=== PATIENT | female | born 1975 | race Caucasian/White ===

== ENCOUNTER → 2020-03-18 09:40 | Outpatient (CLI) | payer OTHER, SELFPAY ==
--- NOTE | ~2020-03-18 | XR_ITS ---
XR lumbar spine 2-3V 03/18/2020 09:58 Indication: Low back pain Procedure: 3 views lumbar spine Comparison: No prior studies for comparison. Findings: Vertebral body heights are maintained. No fracture, subluxation or dislocation. There is mi ld disc narrowing at L5-S1. There are facet hypertrophic changes at L5-S1. Pedicles intact. No eviden ce for spondylolisthesis. Sacral foramen are symmetric. There is an IUD present in the pelvis. Impression: 1: Mild lumbar spondylosis. Reviewed, dictated and finalized at location A. Impression: 1: Mild lumbar spondylosis.
== END ==
PROVIDERS: PCP Physician Assistant; Visit Provider Physician Assistant
DX: M47.896 Other spondylosis, lumbar region (principal)
CPT/HCPCS: 72100

== ENCOUNTER 2020-05-24 14:00 | Outpatient (RCR) | payer OTHER, SELFPAY ==
--- NOTE | 2020-04-06 13:44 | PTOPEVAL ---
PHYSICAL THERAPY EVALUATION AND PLAN OF TREATMENT 04-06-2020 Thank you for referring Darleen Donnelly to [facility].? She is scheduled to be seen for therapy? 1-2 x/week for 5 weeks. Due to her schedule with work and children, the plan is for 1-2 x/week. Please review, sign, date and return this plan of care ORIANA. I agree with and certify that the following plan of care is medically necessary. Referring Physician Date Attending Provider: Micky Cruz MD *PT Outpatient Evaluation Document 04/06/20 12:30 MEGA (Rec: 04/06/20 13:44 MEGA [id number]) Outpatient Past Medical History Past Medical History Source of Past Medical History Patient Neurological History Hx Neurological Disorders No Significant History Cardiovascular History Hx Cardiac Disorders No Significant History Respiratory History Hx Respiratory Disorders No Significant History Gastrointestinal History Hx Gall Bladder Disease Yes: removed Genitourinary History Hx Genitourinary Disorders No Significant History Musculoskeletal History Hx Back Pain Yes: chronic:low back pain, R shoulder pain Hx Other Musculoskeletal Disorders Yes: L ankle pain/sprain, R knee pain; B plantar fascitiis Hematological History Hx Hematological Disorders No Significant History Endocrine History Hx Endocrine Disorders No Significant History HEENT History Hx HEENT Disorders No Significant History Other History Hx Other Medical Conditions Yes: high school sports-track, hurdles,gymnastics, softball Evaluation Information Problem Diagnosis chronic back pain Onset October 2019 Subjective Information increased low back pain in October Query Text:As Reported By Patient/ , twisted back- reaching for Family something in the pool, and on steroids- helped pain, but pain returned and still having pain; chronic back pain ~ 12 years-- no specific injury to back, was active, runner and pain; have never had PT for back; Diagnostic Tests X-Rays For This Problem Yes: mild disc degeneration L5 -S1 and facet hypertrophy L5- S1 Previous Treatments Previous Treatments For This Problem no previous PT Prior Level of Function Activity Level (Last 3 Months) 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
--- NOTE | 2020-05-05 13:00 | PCPTNOTE ---
pt called and canceled today's appointment due to having a cough;
--- NOTE | 2020-05-24 15:18 | PTOPEVAL ---
PHYSICAL THERAPY DISCHARGE 05-24-2020 Refer to the clinical summary below. The goals were partially achieved. Discharge PT services and she is to continue with her home exercise program. And to look into a home traction- with inversion table or home unit. Thank you for referring Darleen Donnelly to [facility].? Please review, sign, date and return this discharge ORIANA. I agree with and certify that the following plan of care is medically necessary. 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 Pain Assessment Timing of Pain Assessment Timing of Pain Assessment Assessment Pain Scale Pain Scale Used Numeric (1 - 10) Self Report Pain Assessment Bilateral Back Reported Pain Level 4 Pain Description Sharp,Stabbing Pain Frequency Chronic Other Pain Description stab L lumbar; intermittent L LE to mid lateral thigh/R LE- NOT for past wk Lowest Pain Intensity 2 Greatest Pain Intensity 6 Pain Aggravating Factors Sitting Other Pain Aggravating Factors sit one hour max; Additional Pain Comments able to sleep through nigh without pain awaken Pain Score Pain Score 4: Self Report Additional Pain Score Comments self assessment with Oswestry 38% limitation; Interventions Used Interventions Used By Clinicians Exercise,Heat,Traction Lower Extremity Range of Motion General Lower Extremity Range of Motion Gross Lower
== END 2020-05-25 13:33 | disposition home or self-care (01) ==
LOC: ANHPT 14:00
PROVIDERS: PCP Family Medicine; Visit Provider Family Medicine
DX: M54.5 Low back pain (principal)
CPT/HCPCS: 97012; 97014; 97110; 97140; 97161; G0283

== ENCOUNTER → 2020-06-02 11:33 | Outpatient (CLI) | payer OTHER, SELFPAY ==
--- NOTE | ~2020-06-02 | MM_ITS ---
EXAMINATION: MM screening [facility] BI w lana HISTORY: Screening TECHNIQUE: Craniocaudal and mediolateral oblique 3-D tomosynthesis images were obtained and synthetic 2-D images were generated. CAD analysis was submitted and interpreted. COMPARISON: Comparison to multiple prior studies sequentially, with oldest reviewed study dated 04/24. BREAST PARENCHYMAL COMPOSITION: There are scattered areas of fibroglandular density. FINDINGS: There is no evidence of suspicious mass, calcification, or architectural distortion to sugg est malignancy in either breast. There has been no suspicious interval change. IMPRESSION: 1. No mammographic evidence of malignancy. 2. Recommend routine screening mammography in one year. BI-RADS Category 1: Negative Reviewed, dictated and finalized at location A. ERCIAL CLEANER
== END ==
PROVIDERS: Visit Provider Nurse Practitioner Obstetrics & Gynecology
DX: Z12.31 Encounter for screening mammogram for malignant neoplasm of breast (principal)
CPT/HCPCS: 77063; 77067

== ENCOUNTER → 2021-07-25 16:08 | Outpatient (CLI) | payer OTHER, SELFPAY ==
--- NOTE | ~2021-07-25 | MM_ITS ---
EXAMINATION: MM screening [facility] BI w lana HISTORY: Screening mammogram TECHNIQUE: Craniocaudal and mediolateral oblique 3-D tomosynthesis images were obtained and synthetic 2-D images were generated. CAD analysis was submitted and interpreted. COMPARISON: 06/02/2020, 05/01/2019, 04/09/2018 BREAST PARENCHYMAL COMPOSITION: There are scattered areas of fibroglandular density. FINDINGS: There is no evidence of suspicious mass, calcification, or architectural distortion to sugg est malignancy in either breast. There has been no suspicious interval change. IMPRESSION: 1. No mammographic evidence of malignancy. 2. Recommend routine screening mammography in one year. BI-RADS Category 1: Negative Reviewed, dictated and finalized at location A. F MEDIA OFFICER
== END ==
PROVIDERS: Visit Provider Nurse Practitioner Obstetrics & Gynecology
DX: Z12.31 Encounter for screening mammogram for malignant neoplasm of breast (principal)
CPT/HCPCS: 77063; 77067

== ENCOUNTER → 2021-11-30 16:36 | Outpatient (CLI) | payer OTHER, SELFPAY ==
--- NOTE | ~2021-11-30 | XR_ITS ---
EXAMINATION: XR chest 2V 11/30/2021 16:56 INDICATION: Chest pain PROCEDURE: 2 view chest COMPARISON: No prior studies for comparison. FINDINGS: The lungs are clear. The cardiomediastinal silhouette is within normal limits. There are no pleural effusions. There is no pneumothorax suspected. IMPRESSION: 1: NO ACUTE CARDIOPULMONARY DISEASE. 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
== END ==
PROVIDERS: PCP Physician Assistant; Visit Provider Physician Assistant
DX: R07.9 Chest pain, unspecified (principal)
CPT/HCPCS: 71046

== ENCOUNTER 2022-03-29 10:00 | Day surgery (SDC) | payer OTHER, SELFPAY ==
[2022-03-14 10:24] VITALS: BMI 29.5
--- NOTE | 2022-03-28 11:31 | PM.HPGS ---
History of Present Illness History of Present Illness Consent: Risks, benefits, and alternatives have been discussed and questions answered. Patient agrees to proceed with procedure. Chief complaint: Neoplasm Screening Narrative: Darleen Donenlly is a 46 year old female referred for colon cancer screening. Review of Systems Review of Systems: All systems reviewed & are unremarkable except as noted in HPI and below PMFSH Past Medical History Medical History Nonerosive esophageal reflux disease Family History Family History Sibling Family history of elevated blood lipids Family history of diabetes mellitus in first degree relative Family history of seizure disorder Mother Family history of diabetes mellitus in first degree relative Family history of coronary artery disease Father Family history of malignant melanoma Hypertension Other Asthma Family history of allergic disorder Family history of cardiovascular disease Social History Social History Smoking packs per day: 0.5 Smoking cigarettes per day: 10.0 Years smoked: 6 Smoking pack-years: 3.00 Smoking status: Former smoker Tobacco type: cigarettes Second hand tobacco smoke exposure: No Smoking end date: 06/24/97 Alcohol intake: current Drinks per week: 1 Alcohol use details: OCCASIONAL Substance use: never Substance use type: does not use Living arrangements: with family Gender identity (if verbalized by the patient): Female Spiritual care concerns: No Meds Home Medications and Allergies Home Medications Medication Instructions Recorded Confirmed Type Bacillus coagulans 400 million See Rx Instructions PO .COMPLEX #1 12/08/21 03/14/22 Rx cell chewable tablet tablet ibuprofen 200 mg tablet 200 mg PO Q6H PRN fever #30 tabs 12/08/21 03/29/22 Rx levonorgestrel 20 mcg/24 hours (8 1 device intrauterine ONCE #1 ea 12/08/21 03/14/22 Rx yrs) 52 mg intrauterine device (Mirena) pediatric multivitamin no.17 1 tablet PO DAILY #30 tabs 12/08/21 03/14/22 Rx (Children's Chew Multivitamin tablet) Allergies Allergy/AdvReac Type Severity Reaction Status Date / Time Sulfa (Sulfonamide Allergy Unknown Rash Verified 03/29/22 10:34 Antibiotics) sulfanilamide Allergy Unknown Rash Verified 03/29/22 10:34 Shrimp Allergy Mild Hives Uncoded 03/29/22 10:34 Exam Const: General: alert Orientation/consciousness: patient oriented x3 Resp: Auscultation: clear to auscultation bilaterally Cardio: Rhythm: regular rhythm GI: GI Palp: Yes Soft to palpation and No Tenderness to palpation present (GI) Neuro: General: patient oriented x3 Assessment and Plan Assessment and plan (1) Colon cancer screening: Code(s): Z12.11 - Encounter for screening for malignant neoplasm of colon Status: Acute Assessment and Plan: Colonoscopy with possible biopsy or polypectomy or cautery or injection of substances.
[2022-03-29 10:38] VITALS: BMI 30.1
[2022-03-29 10:40] VITALS: BP 127/94; PULSE 93; RESP 16; TEMP 37.1; O2SAT 100
--- NOTE | 2022-03-29 10:56 | WPDANESEPPF ---
Anes - Initial Pre Proc Eval Procedure: Operation Date: 03/29/22 12:00 Proposed Procedures p Screening Colonoscopy - Leighton Whitlock MD Date/Time: 03/29/22 10:56 Surgeon: Leighton Whitlock MD Pre Op Diagnosis: Neoplasm Screening Patient Data Age: 46 Gender: F Height: 1.73 m Weight: 89.8 kg Last Vital Signs Temp 37.1 C 03/29/22 10:40 Pulse 93 03/29/22 10:40 Resp 16 03/29/22 10:40 BP 127/94 H 03/29/22 10:40 Pulse Ox 100 03/29/22 10:40 O2 Del Method Room Air 03/29/22 10:40 Allergies Allergy/AdvReac Type Severity Reaction Status Date / Time Sulfa (Sulfonamide Allergy Unknown Rash Verified 03/29/22 10:34 Antibiotics) sulfanilamide Allergy Unknown Rash Verified 03/29/22 10:34 Shrimp Allergy Mild Hives Uncoded 03/29/22 10:34 Home Medications Medication Instructions Recorded Confirmed Type Bacillus coagulans 400 million See Rx Instructions PO .COMPLEX #1 12/08/21 03/14/22 Rx cell chewable tablet tablet ibuprofen 200 mg tablet 200 mg PO Q6H PRN fever #30 tabs 12/08/21 03/29/22 Rx levonorgestrel 20 mcg/24 hours (8 1 device intrauterine ONCE #1 ea 12/08/21 03/14/22 Rx yrs) 52 mg intrauterine device (Mirena) pediatric multivitamin no.17 1 tablet PO DAILY #30 tabs 12/08/21 03/14/22 Rx (Children's Chew Multivitamin tablet) Patient hx anesthesia problems: post op nausea/vomiting Family hx anesthesia problems: other (sister sz) Results Review: All pre-operative results and documents have been reviewed as part of the pre-operative evaluation. [facility] Past Medical History Medical History Nonerosive esophageal reflux disease Family History Family History Sibling Family history of elevated blood lipids Family history of diabetes mellitus in first degree relative Family history of seizure disorder Mother Family history of diabetes mellitus in first degree relative Family history of coronary artery disease Father Family history of malignant melanoma Hypertension Other Asthma Family history of allergic disorder Family history of cardiovascular disease Social History Social History Smoking packs per day: 0.5 Smoking cigarettes per day: 10.0 Years smoked: 6 Smoking pack-years: 3.00 Smoking status: Former smoker Tobacco type: cigarettes Second hand tobacco smoke exposure: No Smoking end date: 06/24/97 Alcohol intake: current Drinks per week: 1 Alcohol use details: OCCASIONAL Substance use: never Substance use type: does not use Living arrangements: with family Gender identity (if verbalized by the patient): Female Spiritual care concerns: No Anes - Eval Final PreProcedure Day of Procedure 03/29/22 10:56 Patient weight: overweight Heart: regular rate and rhythm Lungs: clear to auscultation Airway: Mallampati scale class II Neurological: alert and oriented Last oral intake: >/= 8 hours ASA classification: II Emergent: no Anesthetic plan: proceed Anesthesia type and monitoring: general GIVS and standard monitoring Results Review: All pre-operative results and documents have been reviewed as part of the pre-operative evaluation. Informed Consent: The patient's anesthetic plan and its attendant risks and benefits were discussed with the patient/family/POA. Questions were solicited and answers provided to the satisfaction of the patient/family/POA.
[2022-03-29] MEDS: LACTATED RINGERS 1,000 ML 150 ML IV CONT (10:59)
[2022-03-29 11:35] VITALS: BP 98/72; PULSE 90; RESP 16; O2SAT 98
[2022-03-29 11:44] VITALS: BP 111/80; PULSE 81; O2SAT 98
--- NOTE | 2022-03-29 11:46 | WPDANESPN ---
Anes - Prog Note Post-Op Date/Time: 03/29/22 11:46 Cardiovascular status: normal Respiratory status: normal Airway patency: baseline Mental status: baseline Post-Op hydration status: normal Vital Signs: Last Vital Signs Temp 37.1 C 03/29/22 10:40 Pulse 93 03/29/22 10:40 Resp 16 03/29/22 10:40 BP 127/94 H 03/29/22 10:40 Pulse Ox 100 03/29/22 10:40 O2 Del Method Room Air 03/29/22 10:40 Pain Score (VAS): 0 I/O: Intake & Output 03/28/22 03/29/22 03/29/22 23:59 07:59 15:59 Intake Total 400 Balance 400 Patient Feedback: Patient satisfied with anesthetic care.
[2022-03-29 11:55] VITALS: BP 106/82; PULSE 74; RESP 16; O2SAT 98
== END 2022-03-29 12:00 | disposition home or self-care (01) ==
PROVIDERS: PCP Family Medicine; Visit Provider Internal Medicine Gastroenterology
PROC: 0DJD8ZZ Inspection of Lower Intestinal Tract, Via Natural or Artificial Opening Endoscopic (ICD-10-PCS; CPT 45378; principal; 2022-03-29 12:00)
DX: Z12.11 Encounter for screening for malignant neoplasm of colon (principal)
CPT/HCPCS: 45378

== ENCOUNTER 2022-05-16 10:03 | Outpatient (CLI) | payer OTHER, SELFPAY | END 2022-05-16 10:04 | disposition home or self-care (01) | LOC: ANHSURGERY 10:06 | PROVIDERS: PCP Family Medicine; Visit Provider Obstetrics & Gynecology | DX: D25.9 Leiomyoma of uterus, unspecified (principal); Z01.818 Encounter for other preprocedural examination | CPT/HCPCS: 36415; 86850; 86900; 86901 ==

== ENCOUNTER 2022-05-25 00:23 | Day surgery (SDC) | payer OTHER, SELFPAY ==
[2022-05-14 10:01] VITALS: BMI 29.7
--- NOTE | 2022-05-14 10:05 | SUR.PREOP ---
Report to the Outpatient Waiting Room, entrance under the green pavilion located off [facility], at time _0600_ on date 729. Planned Procedure Time: _729__. Time changes happen often and if your time is changed the preop area will call you the afternoon before. - You and your visitor will be asked to self-screen and do not enter if you have any COVID symptoms. - Only one visitor is requested with a max of two and NO children visitors are allowed at this time. - The patient visitor may be requested to leave or wait in car when not with patient due to distancing restrictions. - A mask is optional within the hospital. Patients may have clear liquids (water, carbonated beverages, clear teas, apple juice) until 3 hours prior to surgery with a maximum of 20 ounces. - No food from midnight until time of surgery - Infants may have breast milk until 4 hours before surgery, infant formula 6 hours prior to surgery. - Children will be allowed to drink immediately following surgery. If applicable, please bring a bottle or sippy cup to assist with drinking. Juice, water, soda, and popsicles are readily available. For infants on formula, please bring formula the day of surgery. Pacifiers are allowed. Take the following medications with a SIP of water the morning of surgery: __N/A____ Medications to discontinue per physician N/A Date to take last dose Please no make-up, nail german, hairspray, perfume, deodorant, or body powder the day of surgery. No jewelry (including any body piercings) or valuables the day of surgery, leave them at home. Please take a shower or bath the night before, or the morning of, surgery with an antibacterial soap. Wear comfortable, loose fitting clothing. Children are encouraged to wear pajamas. - Jewelry must be removed prior to entering the operating room. Rings and piercings that are not removed may be cut off. - The hospital will not accept responsibility for valuables. - Please leave all valuables, including medications, at home the day of surgery. If you are going home after surgery, a licensed sulky driver must drive you home. - NO public transportation without another adult if you receive anesthesia. - We recommend that an adult stay with you for 24 hours following discharge. - We also recommend that you do not drive, make important decision, drink alcoholic beverages, or take any drugs that were not prescribed by your health care provider for at least 24 hours after your discharge time. For Pediatric surgeries, we recommend two adults accompany the child home. Follow any additional instructions given to you from your surgeon. If you or anyone in your household have experienced Covid symptoms in the past week, please notify your surgeon or the nurse liaison at the phone number below for possible testing. Telephone instructions given to _PATIENT___and asked if any additional questions and then verbalized understanding. Patient advised to call surgeon office or pre surgery nurse liaison [phone] if any additional questions.
[2022-05-25] VITALS (9 sets, daily range): BP systolic 98–128; BP diastolic 64–93; PULSE 58–89; RESP 12–18; TEMP 36.3–37; O2SAT 96–100
--- NOTE | 2022-05-25 06:24 | P.PNAN_ITS ---
Anes - Initial Pre Proc Eval Procedure: Operation Date: 05/25/22 07:30 Proposed Procedures p Robotic Assisted Hysterectomy with Bilateral Salpingectomy - Madeleine Elliott MD Date/Time: 05/25/22 06:24 Surgeon: Madeleine Elliott MD Pre Op Diagnosis: uterine leiomyoma Patient Data Age: 46 Gender: F Height: 1.7 m Weight: 86.2 kg Allergies Allergy/AdvReac Type Severity Reaction Status Date / Time Sulfa (Sulfonamide Allergy Unknown Rash Verified 03/29/22 10:34 Antibiotics) sulfanilamide Allergy Unknown Rash Verified 03/29/22 10:34 Shrimp Allergy Mild Hives Uncoded 03/29/22 10:34 Home Medications Medication Instructions Recorded Confirmed Type ibuprofen 200 mg tablet 200 mg PO Q6H PRN fever #30 tabs 12/08/21 05/14/22 Rx Patient hx anesthesia problems: none Family hx anesthesia problems: none Results Review: All pre-operative results and documents have been reviewed as part of the pre- operative evaluation. PMFSH Past Medical History Medical History (Updated 05/25/22 @ 06:24 by Yared Moya MD) Nonerosive esophageal reflux disease Overweight Surgical History Surgical History (Updated 05/25/22 @ 06:27 by Yared Moya MD) H/O colonoscopy History of cholecystectomy Family History Family History Sibling Family history of elevated blood lipids Family history of diabetes mellitus in first degree relative Family history of seizure disorder Mother Family history of diabetes mellitus in first degree relative Family history of coronary artery disease Father Family history of malignant melanoma Hypertension Other Asthma Family history of allergic disorder Family history of cardiovascular disease Social History Social History Smoking packs per day: 0.5 Smoking cigarettes per day: 10.0 Years smoked: 6 Smoking pack-years: 3.00 Smoking status: Never smoker Tobacco type: cigarettes Second hand tobacco smoke exposure: No Smoking end date: 06/24/97 Alcohol intake: current Drinks per week: 5 Alcohol use details: OCCASIONAL Substance use: never Substance use type: does not use Living arrangements: with family Gender identity (if verbalized by the patient): Female Spiritual care concerns: No Anes - Eval Final PreProcedure Day of Procedure 05/25/22 06:24 Patient weight: obese Heart: regular rate and rhythm Lungs: clear to auscultation Airway: Mallampati scale class II Neurological: alert and oriented Last oral intake: >/= 8 hours ASA classification: II Emergent: no Anesthetic plan: proceed Anesthesia type and monitoring: general ETT and standard monitoring Results Review: All pre-operative results and documents have been reviewed as part of the pre- operative evaluation. Informed Consent: The patient's anesthetic plan and its attendant risks and benefits were discussed with the patient/family/POA. Questions were solicited and answers provided to the satisfaction of the patient/family/POA.
[2022-05-25] MEDS: ACETAMINOPHEN 500 MG TABLET 1000 MG PO (07:00)
[2022-05-25] MEDS: LACTATED RINGERS 1,000 ML 30 ML IV CONT ×2 (07:11→10:00)
[2022-05-25] MEDS: KETOROLAC 15 MG/ML VIAL (*BKC) IV PUSH (07:12)
--- NOTE | 2022-05-25 07:15 | WPDHPUPDATE1 ---
History and Physical Update Update Date/Time: 05/25/22 07:15 History and Physical has been reviewed, including an updated exam of the patient. There are NO changes in the patient's condition. Risks, benefits, and alternatives have been discussed and questions answered. Patient agrees to proceed with procedure.
--- NOTE | 2022-05-25 07:16 | WPDHPUPDATE1 ---
History and Physical Update Update Date/Time: 05/25/22 07:16 History and Physical has been reviewed, including an updated exam of the patient. There are NO changes in the patient's condition. Risks, benefits, and alternatives have been discussed and questions answered. Patient agrees to proceed with procedure.
--- NOTE | 2022-05-25 07:21 | PM.IMHP ---
H&P: HPI History of Present Illness Date/Time: 05/25/22 07:21 Chief Complaint: Abnormal uterine bleeding Narrative: 46-year-old female with abnormal uterine bleeding presents for preoperative care. We have agreed to perform robotic assisted total hysterectomy with bilateral salpingectomy. She understands the risks. She understands that injuries may occur that result in hospitalization, more surgery, and severe illness. She understands there is risk of hemorrhage and infection. She has completed the informed consent process and is ready to proceed. She understands the risks, benefits, and alternatives. Review of Systems Review of Systems: All systems reviewed & are unremarkable except as noted in HPI and below Constitutional: Constitutional: Denies chills, Denies fatigue, Denies fever(s) and Denies weakness Eyes: Eyes: Denies blurry vision, Denies change in vision, Denies loss of peripheral vision, Denies loss of vision, Denies other visual disturbances and Denies eye pain ENT: Denies vertigo, Denies dizziness, Denies hearing loss, Denies mouth pain, Denies nasal obstruction, Denies neck mass and Denies neck pain Cardiovascular: Cardiovascular: Denies chest pain, Denies diaphoresis, Denies syncope, Denies leg edema and Denies dyspnea Respiratory: Respiratory: Denies chest congestion, Denies cough, Denies hemoptysis, Denies dyspnea and Denies wheezing Gastrointestinal: Gastrointestinal: Denies abdominal pain, Denies constipation, Denies diarrhea, Denies nausea and Denies vomiting Genitourinary: Genitourinary: Denies hematuria, Denies change in libido, Denies nocturia, Denies genital lesions, Denies flank pain and Denies urinary urgency Musculoskeletal: Musculoskeletal: Denies abnormal gait, Denies back pain, Denies myalgias, Denies arthralgias, Denies joint swelling, Denies muscle weakness and Denies neck pain Integumentary/Breasts: Skin/Breast: Denies swelling, Denies breast pain, Denies breast mass, Denies dry skin, Denies nipple discharge, Denies unusual bruising and Denies jaundice Neurologic: Denies Neuro-related abnormal movements, Denies Abnormal speech present, Denies abnormal gait, Denies behavioral changes, Denies confusion, Denies vertigo, Denies dizziness, Denies syncope, Denies loss of vision, Denies memory loss, Denies convulsions and Denies weakness Psychiatric: Psychiatric: Denies abnormal sleep pattern, Denies behavioral changes, Denies change in libido, Denies confusion, Denies depression, Denies anhedonia and Denies memory loss Endocrine: Endocrine: Reports no additional endocrine complaints, Denies change in libido and Denies fatigue Hematologic/Lymphatic: Hematologic/Lymphatic: Reports no additional hematologic/lymphatic complaints Allergic/Immunologic: Allergic/Immunologic: Reports no additional allergic/immunologic complaints and Denies wheezing PMF Past Medical History Medical History (Updated 05/25/22 @ 07:23 by Madeleine Elliott MD) Nonerosive esophageal reflux disease Overweight Surgical History Surgical History (Updated 05/25/22 @ 06:27 by Yared Moya MD) H/O colonoscopy History of cholecystectomy Family History Family History Sibling Family history of elevated blood lipids Family history of diabetes mellitus in first degree relative Family history of seizure disorder Mother Family history of diabetes mellitus in first degree relative Family history of coronary artery disease Father Family history of malignant melanoma Hypertension Other Asthma Family history of allergic disorder Family history of cardiovascular disease Social History Social History Smoking packs per day: 0.5 Smoking cigarettes per day: 10.0 Years smoked: 6 Smoking pack-years: 3.00 Smoking status: Never smoker Tobacco type: cigarettes Second hand tobacco smoke exposure: No Smoking
[2022-05-25] MEDS: SCOPOLAMINE 1.5 MG PATCH TRANSDERM (07:23)
--- NOTE | 2022-05-25 10:15 | W.PM.PROC2 ---
Procedure Note - Detailed Date of Procedure 05/25/22 Pre-op Diagnosis Dysmenorrhea, myoma Post-op Diagnosis Same Procedure Performed Robot assisted Total hysterectomy with bilateral salpingectomy. Surgeon Madeleine Elliott MD Anesthesia General Indications dysmenorrhea, myoma Findings enlarged fibroid uterus, normal-appearing tubes and ovaries. Description of Procedure This patient was taken to the operating room. She was prepped and draped in the dorsal lithotomy position after induction of general anesthesia. The uterine manipulator and Alberto cup were placed. This was done with a speculum and tenaculum. The speculum was placed. The cervix was grasped with a tenaculum. The stay sutures were placed at 3 and 9:00 a.m.. The stay sutures of 0 Vicryl were tied to the appropriately Size scope after it was slipped around the cervix.. The tip of the FLOWER manipulator was placed in the intrauterine cavity. The cup was slid into place around the cervix and into the fornices. It was locked into place. The sutures were then wrapped around the handle and tied under tension. A 8 mm skin incision was made in the left upper quadrant the abdomen. a 5 mm Visiport trocar was inserted into abdominal cavity and pneumoperitoneum was achieved. A 8 mm supraumbilical incision was made and a 8 mm trocar was inserted into the intrauterine cavity under direct visualization of the scope. an 8 mm incision was made in the right upper quadrant of the abdomen and an 8 mm robotic trocar was placed the inter uterine cavity under direct visualization the scope. An 11 mm trocar was inserted in the right upper quadrant of the abdomen rectal is a cystoscope after an incision was made there as well. The robot was docked. Electronic Orientation of the robot was performed. Bilateral ureteral lysis was performed. This was done from the pelvic brim down to the uterine artery. This was done with careful dissection using sharp and blunt dissection. The fallopian tubes were removed bilaterally. The mesosalpinx around the fallopian tubes were cauterized transected with LigaSure cautery. This was done in a bilateral fashion from the ovary to the uterine cornua. The fallopian tube was transected at the uterine cornu and amputated. The tube was taken out the left lower quadrant trocar site. In a stepwise fashion along the lateral aspects of the uterus the round ligament and broad ligaments were cauterized transected down to the level of the uterine arteries. A bladder flap was created in the bladder was moved distally to the end of the cervix and over the Alberto cup. The bilateral uterine arteries were cauterized and transected. Colpotomy was then performed. In a circumferential fashion the vagina was transected using unipolar cautery. The incision was made down on the Alberto cup. The uterus and cervix were taken out through the vagina. A pneumo occluder was placed in the vagina. The vaginal cuff was closed with a 0 V lock suture in a running fashion. The pelvis was irrigated with copious amounts antibiotic irrigation. The ureters were again examined and found to be intact and flowing freely under the uterine arteries into the bladder. The bladder was intact. It was examined directly. The vagina was irrigated with Betadine solution after removal of the Pneumo occluder. the trocars were removed after the robot was undocked. The skin was closed with subacute or Dermabond. The patient was taken to recovery room. She was stable condition. Sponge lap and needle counts were correct x2. Estimated Blood Loss -50.0 Urine Output -50.0 Drains Yes Packing No Pathology Yes Complications No immediate complications Condition Stable Disposition Floor
[2022-05-25] MEDS: fentaNYL CITRATE INJ (*CRX) 100 MCG/2 ML VIAL 25 MCG IV PUSH ×4 (10:30→10:47)
--- NOTE | 2022-05-25 11:00 | PC.NURSE ---
This patient, Darleen Donnelly, was received from PACU on 05/25/22 at 1100. Patient/family oriented to unit policies and routines
[2022-05-25] MEDS: DEXTROSE 5%/0.45% SOD CHL 1,000 ML 125 ML IV CONT (11:26)
[2022-05-25] MEDS: KETOROLAC 30 MG/ML VIAL (*BKC) IV PUSH (13:28)
[2022-05-25] MEDS: ACETAMINOPHEN 500 MG TABLET 1000 MG (17:22)
[2022-05-25] MEDS: IBUPROFEN 600 MG TABLET PO (20:19)
[2022-05-26 00:50] VITALS: BP 94/56; PULSE 72; RESP 16; TEMP 37.5
[2022-05-26] MEDS: IBUPROFEN 600 MG TABLET PO (02:49)
[2022-05-26 05:15] VITALS: BP 114/56; PULSE 68; RESP 16; TEMP 37.7
[2022-05-26 07:30] VITALS: BP 90/75; PULSE 70; RESP 16; TEMP 36.9; O2SAT 99
--- NOTE | 2022-05-26 08:37 | PM.GYNPNOP ---
SEO TEAM LEAD - A/P Postoperative Procedures: Procedures Operation Date: 05/25/22 07:30 Actual Procedure Side Surgeon p Robotic Assisted Hysterectomy with Bilateral Salpingectomy Bilateral Madeleine Elliott MD Postoperative day: 1 Postoperative status: doing well Postoperative plan: see orders Time Spent With Patient Time: Total time spent is greater than 50% in coordination of care (as documented) at patient's floor/unit and/or counseling patient: Time with patient: less than 15 minutes SEO TEAM LEAD- PN:Subj Post-Op Subjective Date/time seen: 05/26/22 08:37 Subjective: patient reports feeling better, patient has no complaints and pain is well controlled Exam Const: General: healthy appearing, comfortable and no acute distress Resp: Auscultation: clear to auscultation bilaterally, no rales, no rhonchi and no wheezes Cardio: Rate: regular rate Heart sounds: no click, no murmurs and no rubs GI: Inspection: non-distended Auscultation: normal bowel sounds Extrem: General: normal to inspection, no pedal edema and no calf tenderness SEO TEAM LEAD - PN: Obj Data Vital Signs Vital Signs: Vital Signs - 24 hr 05/25/22 10:00 05/25/22 10:15 05/25/22 10:30 Temperature 98 F Pulse Rate 64 69 67 Respiratory Rate 18 12 12 Blood Pressure 112/64 119/68 124/82 Pulse Oximetry 100 100 100 Oxygen Delivery Simple Face Mask Simple Face Mask Room Air Oxygen Flow Rate 10 10 05/25/22 10:45 05/25/22 10:50 05/25/22 11:05 Temperature 98.2 F Pulse Rate 64 65 58 L Respiratory Rate 13 18 16 Blood Pressure 115/74 115/77 110/68 Pulse Oximetry 96 99 100 Oxygen Delivery Room Air Room Air Oxygen Flow Rate 05/25/22 15:17 05/25/22 19:47 05/26/22 00:50 Temperature 98.6 F 98.0 F 99.5 F Pulse Rate 84 89 72 Respiratory Rate 16 18 16 Blood Pressure 98/66 L 106/66 94/56 L Pulse Oximetry 96 Oxygen Delivery Oxygen Flow Rate 05/26/22 05:15 Temperature 99.8 F H Pulse Rate 68 Respiratory Rate 16 Blood Pressure 114/56 L Pulse Oximetry Oxygen Delivery Oxygen Flow Rate Intake/Output Intake/Output: Intake & Output 05/23/22 05/24/22 05/25/2222 23:59 23:59 23:59 23:59 Intake Total 2690 Output Total 850 Balance 1840 Meds/Results Medications: Active Medications Generic Name Dose Route Start Last Admin Trade Name Freq PRN Reason Stop Dose Admin Acetaminophen 1,000 mg 05/25/22 17:41 Acetaminophen 500 Mg Tablet PO Q6H PRN Headache Hydrocodone Bitart/Acetaminophen 1 tab 05/25/22 10:51 Hydrocodone/Acetaminophen (*Crx) 5-325 Mg Tablet PO Q3H PRN Pain Rated 5 or Less Hydrocodone Bitart/Acetaminophen 1 tab 05/25/22 10:51 Hydrocodone/Acetaminophen (*Crx) 10-325 Mg Tablet PO Q3H PRN Pain Rated 6 or Greater Ibuprofen 600 mg 05/25/22 10:51 05/26/22 02:49 Ibuprofen 600 Mg Tablet PO 600 mg Q6H PRN Administration Cramping Ketorolac Tromethamine 30 mg 05/25/22 10:51 05/25/22 13:28 Ketorolac 30 Mg/Ml Vial (*Bkc) IV PUSH 05/30/22 10:50 30 mg Q6H PRN Administration Pain Rated 4-6 Naloxone HCl 0.1 mg 05/25/22 10:51 Naloxone Hcl 0.4 Mg/Ml Vial IV PUSH Q2M PRN Respiratory rate less than 10 Ondansetron HCl 4 mg 05/25/22 10:51 Ondansetron Inj 4 Mg/2 Ml Vial IV PUSH Q6H PRN Nausea And Vomiting
== END 2022-05-26 10:15 | disposition home or self-care (01) ==
LOC: ANHSURGERY 07:26 → ANHOB2 10:57
PROVIDERS: PCP Family Medicine; Visit Provider Obstetrics & Gynecology
PROC: (CPT 58571; principal; 2022-05-25 07:30)
DX: N93.9 Abnormal uterine and vaginal bleeding, unspecified (principal); N94.6 Dysmenorrhea, unspecified; D25.0 Submucous leiomyoma of uterus; D25.1 Intramural leiomyoma of uterus; D25.2 Subserosal leiomyoma of uterus; N84.1 Polyp of cervix uteri; Z87.891 Personal history of nicotine dependence; E66.9 Obesity, unspecified; Z68.30 Body mass index [BMI] 30.0-30.9, adult
CPT/HCPCS: 58571; S2900; 36415; 86850; 86900; 86901; 88307; 99199; A9270; J1100; J1170; J1885; J2250; J2405; J2704; J2710; J3010; J7030; J7120

== ENCOUNTER → 2022-08-20 11:33 | Outpatient (CLI) | payer OTHER, SELFPAY ==
--- NOTE | ~2022-08-20 | MM_ITS ---
EXAMINATION: MM screening [facility] w lana HISTORY: Screening mammogram TECHNIQUE: Craniocaudal and mediolateral oblique 3-D tomosynthesis images were obtained and synthetic 2-D images were generated. CAD analysis was submitted and interpreted. COMPARISON: July 25, 2021, June 02, 2020, May 01, 2019 bilateral screening mammogram exam[place] BREAST PARENCHYMAL COMPOSITION: There are scattered areas of fibroglandular density. FINDINGS: There is no evidence of suspicious mass, calcification, or architectural distortion to sugg est malignancy in either breast. There has been no suspicious interval change. IMPRESSION: 1. No mammographic evidence of malignancy. 2. Recommend routine screening mammography in one year. 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
== END ==
PROVIDERS: PCP Family Medicine; Visit Provider Obstetrics & Gynecology
DX: Z12.31 Encounter for screening mammogram for malignant neoplasm of breast (principal)
CPT/HCPCS: 77063; 77067

== ENCOUNTER 2024-05-06 03:53 | Emergency (ER) | payer OTHER, SELFPAY ==
--- NOTE | ~2024-05-06 | US_ITS ---
EXAMINATION: US pelvic complete DATE: 05/06/2024 10:02 INDICATION: Right lower quadrant abdominal pain. TECHNIQUE: Multiple transabdominal sonographic images of the pelvis were obtained. COMPARISON: None. FINDINGS: Status post hysterectomy with no abnormal masses or fluid collections at the uterine fossa. The right ovary measures 2.6 x 2.3 x 2.3 cm. 1.8 cm anechoic right ovarian cyst/follicle. The left ovary measu res 2.6 x 2.0 x 2.0 cm. Vascular flow with arterial waveforms identified in both ovaries on color Dop pler. There is no free fluid in the pelvis. IMPRESSION: 1. Status post hysterectomy and 1.8 cm anechoic right ovarian cyst/follicle. 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
--- NOTE | ~2024-05-06 | CT_ITS ---
EXAMINATION: CT abdomen pelvis w con DATE: 05/06/2024 07:20 INDICATION: Right abdominal pain. Nausea. TECHNIQUE: Computed tomography (CT) of the abdomen and pelvis was performed with 100 mL Omnipaque 350 intravenous contrast. Automated exposure control and iterative reconstruction technique were employe d. The dose-length product was 872.94 mGy-cm. COMPARISON: None. FINDINGS: The visualized portions of the lung bases are clear without pneumonia or pleural effusion. The heart size is normal. No pericardial effusion. There is diffuse hepatic steatosis. The spleen, pa ncreas, adrenal glands, and kidneys are normal. There is diverticulosis of the colon without evidence of diverticulitis. There are no dilated loops of bowel. The appendix is normal. There are no patholo gically enlarged lymph nodes. There is physiologic fluid in the pelvis. There is an umbilical hernia containing fat. There is mild thoracic and lumbar spondylosis. IMPRESSION: 1. Umbilical hernia containing fat. 2. Diffuse hepatic steatosis. 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
[2024-05-06 03:54] VITALS: BP 112/70; PULSE 73; RESP 16; TEMP 36.4; O2SAT 100
[2024-05-06 04:39] LABS: BEDSIDEPREGUCG Negative (Negative)
[2024-05-06 05:00] VITALS: BP 113/89; PULSE 66; RESP 14; TEMP 37.1; O2SAT 99
[2024-05-06 05:10] LABS: Basophils Percent Auto 0.5 % (0.2-1.2); Eosinophils Absolute Auto 0.1 K/mm3 (0-0.3); Eosinophils Percent Auto 0.7 % (0-4.4); Hematocrit 40.7 % (37.0-47.0); Hemoglobin 14.4 g/dL (12.0-15.0); Immature Granulocyte Absolute 0.02 K/mm3 (0.00-0.031); Immature Granulocyte Percent A 0.2 % (0-0.5); Lymphocytes Absolute Auto 2.06 K/mm3 (0.9-3.2); Lymphocytes Percent Auto 23.5 % (18.3-44.2); Mean Corpuscular HGB Conc 35.4 g/dl (32-36); Mean Corpuscular Hemoglobin 30.4 pg (26-34); Mean Platelet Volume 8.7 fl (7.4-10.4); Monocytes Absolute Auto 0.5 K/mm3 (0.1-0.6); Monocytes Percent Auto 6.2 % (2.6-8.5); Neutrophils Absolute Auto 6.1 K/mm3 (1.3-6.7); Neutrophils Percent Auto 68.9 % (45.5-73.1); Platelet Count Result 349 k/mm3 (150-375); Red Blood Count 4.73 M/mm3 (4.2-5.4); White Blood Count 8.8 K/mm3 (4.5-10.0)
[2024-05-06 05:15] LABS: Add Urine Microscopic? NO; Appearance Urine Clear (Clear); Bilirubin Urine Negative (Negative); Blood Urine Negative (Negative); Color Urine Yellow (Yellow); Glucose Urine UA Negative (Negative); Ketones Urine Negative (Negative); Leukocyte Esterase Ur Negative LEU/UL (Negative); Nitrate Urine Negative (Negative); Protein Urine Negative (Negative); Specific Grav Ur 1.026 (1.001-1.035)
[2024-05-06 05:22] LABS: Alanine Aminotransferase 20 U/L (6-35); Albumin Level 4.7 g/dL (3.5-5.1); Alkaline Phosphatase 86 U/L (38-126); Anion Gap 9 mmol/L (4-12); Aspartate Amino Transferase 27 U/L (14-36); Bilirubin,Total 2.3 mg/dL (0.2-1.3); Blood Urea Nitrogen 15 mg/dL (7-17); Calcium 9.1 mg/dL (8.4-10.2); Carbon Dioxide 23 mmol/L (22-30); Chloride 103 mmol/L (98-107); Estimated CRCL calculation 99 ml/min; Estimated Glomerular Filt Rate > 60; Glucose 114 mg/dL (65-110); Lipase 42 U/L (23-300); Potassium 4.2 mmol/L (3.4-5.0); Sodium 135 mmol/L (137-145)
[2024-05-06 07:40] VITALS: BP 116/86; PULSE 67; RESP 16; O2SAT 99
--- NOTE | 2024-05-06 07:47 | ED.GENADULT ---
HPI - General Adult General Chief complaint: Abdominal Pain Stated complaint: R sided abd pain Time Seen by Provider: 05/06/24 06:52 History of Present Illness HPI narrative: 48-year-old female presents To the emergency department for evaluation for right-sided abdominal pain. Patient states the pain started approximately 730 last night. Patient states she feels the pain is radiating from her flank down to her right lower quadrant. Patient denies any prior history of kidney stones. Patient does have a prior history of hysterectomy and a cholecystectomy. Patient states he did take ibuprofen for pain control at home and initially declined any medications for pain control here. Related Data Allergies Allergy/AdvReac Type Severity Reaction Status Date / Time Sulfa (Sulfonamide Allergy Unknown Rash Verified 05/06/24 03:54 Antibiotics) sulfanilamide Allergy Unknown Rash Verified 05/06/24 03:54 Shrimp Allergy Mild Hives Uncoded 12/17/23 08:28 Review of Systems Review of Systems: All systems reviewed & are unremarkable except as noted in HPI and below PMFSH Past Medical History Medical History Nonerosive esophageal reflux disease Overweight Surgical History Surgical History H/O colonoscopy History of cholecystectomy Family History Family History Sibling Family history of elevated blood lipids Family history of diabetes mellitus in first degree relative Family history of seizure disorder Mother Family history of diabetes mellitus in first degree relative Family history of coronary artery disease Father Family history of malignant melanoma Hypertension Other Asthma Family history of allergic disorder Family history of cardiovascular disease Social History Social History Social History: Smoking packs per day: 0.5 Smoking cigarettes per day: 10.0 Years smoked: 6 Smoking pack-years: 3.00 Smoking status: Former smoker Tobacco type: cigarettes Second hand tobacco smoke exposure: No Smoking end date: 06/24/97 Alcohol intake: current Drinks per week: 5 Substance use: never Substance use type: does not use Lack of Transportation: No Lack of Food: Never True Current Housing: I Have Housing Concerned About Future Housing: No Difficulty Paying Gas/Electric Bills: No Difficulty Paying for Meds: No Currently Unemployed: No Education: Decline to Answer Difficulty w/ Childcare or Family Care: No Living arrangements: with family Occupation/Education: occupation Gender identity (if verbalized by the patient): Female Sexual Orientation (if Verbalized by the Patient): Straight or Heterosexual Spiritual care concerns: No Exam Narrative: APPEARANCE: Well appearing, no pain, no distress, well-nourished. HEAD: normocephalic, atraumatic. EYES: PERRLA/EOMI, conjunctivae clear. NOSE: Normal no drainage EARS:TMS clear with good light reflex. THROAT: Pharynx clear, no exudate. NECK: Supple. No adenopathy, no masses. RESPIRATORY: Airway patent, respirations nonlabored. Clear to auscultation bilaterally, no rales, rhonchi, wheezing. CARDIOVASCULAR: Regular rate and rhythm without murmurs rubs or gallops. ABDOMINAL: Soft, nontender, nondistended, normal bowel sounds , no significant right-sided tenderness to palpation no rebound no guarding MUSCULOSKELETAL: Moves all extremities. Strength/ROM intact, No edema, No calf tenderness. NEURO: Alert. Cranial nerves II through XII intact. Good gait. Good coordination SKIN: Warm, dry. Normal Color Course Course Emergency Course: patient was updated results of the workup was comfortable with plan for discharge and close follow-up Vital Signs Vital signs: Vital Signs Temperature 97.6 F 05/06/24 03:54 Pulse Rate 73 05/06/24 03:54 Respiratory Rate 16 05/06/24 03:54 Blood Pressure 112/70 05/06/24 03:54 Pulse Oximetry 100 05/06/24 03:54 Oxygen Delivery Room Air 05/06/24 03:54 Temperature 98.7 F 05/06/24 05:00 Pulse Rate 82 05/06/24 11:00 Respiratory Rate 14 05/06/24 11:00 Blood Pressure 122/82 05/06/24 11:00 Pulse Oximetry 100 05/06/24 11:00 Oxygen Delivery Room Air 05/06/24 03:54 Medical Decision Making [facility] Narrative Medical decision making narrative: 48-year-old female presenting to the emergency department for evaluation of right flank pain. Patient is afebrile with no leukocytosis and hemoglobin of 14.4. Patient has no significant abnormalities on the CMP UA was negative for infection. CT abdomen pelvis was ordered to evaluate for ureteral calculi and CT was negative. Patient may have had a stone that she passed as she was describing right flank pain that radiated around. Patient may be having musculoskeletal injury. No evidence of colitis, diverticulitis, appendicitis, UTI. Patient does have prior history hysterectomy but did not have an oophorectomy. Patient does have a history of ovarian cyst. Ultrasound was ordered and does show a right-sided ovarian cyst with no evidence of torsion. Patient was updated results of her workup patient was comfortable plan for discharge and close follow-up. Differential Diagnosis Differential Diagnosis: colitis, diverticulitis, UTI, cholecystitis Vital Signs Vital Signs: Vital Signs Temperature 97.6 F 05/06/24 03:54 Pulse Rate 73 05/06/24 03:54 Respiratory Rate 16 05/06/24 03:54 Blood Pressure 112/70 05/06/24 03:54 Pulse Oximetry 100 05/06/24 03:54 Oxygen Delivery Room Air 05/06/24 03:54 Temperature 98.7 F 05/06/24 05:00 Pulse Rate 82 05/06/24 11:00 Respiratory Rate 14 05/06/24 11:00 Blood Pressure 122/82 05/06/24 11:00 Pulse Oximetry 100 05/06/24 11:00 Oxygen Delivery Room Air 05/06/24 03:54 Lab Data Lab results reviewed: Yes I reviewed the patient's lab results. 05/06/24 05:03 05/06/24 05:03 Labs: Lab Results 05/06/24 05/06/24 05/06/24 Range/Units 04:26 04:37 05:03 WBC 8.8 (4.5-10.0) K/mm3 RBC 4.73 (4.2-5.4) M/mm3 Hgb 14.4 (12.0-15.0) g/dL Hct 40.7 (37.0-47.0) % MCV 86.0 (80-100) fl MCH 30.4 (26-34) pg MCHC 35.4 (32-36) g/dl RDW 13.0 (11.5-14.5) % Plt Count 349 (150-375) k/mm3 MPV 8.7 (7.4-10.4) fl Immature Gran % (Auto) 0.2 (0-0.5) % Neut % (Auto) 68.9 (45.5-73.1) % Lymph % (Auto) 23.5 (18.3-44.2) % [place] % (Auto) 6.2 (2.6-8.5) % Eos % (Auto) 0.7 (0-4.4) % Baso % (Auto) 0.5 (0.2-1.2) % Lymph # (Auto) 2.06 (0.9-3.2) K/mm3 [place] # (Auto) 0.5 (0.1-0.6) K/mm3 Eos # (Auto) 0.1 (0-0.3) K/mm3 Baso # (Auto) 0.0 (0.0-0.1) K/mm3 Abs Immat Gran (auto) 0.02 (0.00-0.031) K/mm3 Absolute Neuts (auto) 6.1 (1.3-6.7) K/mm3 Absolute Nucleated RBC 0.000 (0.0-0.012) K/mm3 Nucleated RBC % 0.0 (0.0-0.2) % Sodium 135 L (137-145) mmol/L Potassium 4.2 (3.4-5.0) mmol/L Chloride 103 (98-107) mmol/L Carbon Dioxide 23 (22-30) mmol/L Anion Gap 9 (4-12) mmol/L BUN 15 (7-17) mg/dL Creatinine 0.70 (0.7-1.0) mg/dL Estim Creat Clear Calc 99 ml/min Estimated GFR > 60 (59 - ) Glucose 114 H (65-110) mg/dL Calcium 9.1 (8.4-10.2) mg/dL Total Bilirubin 2.3 H (0.2-1.3) mg/dL AST 27 (14-36) U/L ALT 20 (6-35) U/L Alkaline Phosphatase 86 (38-126) U/L Total Protein 8.0 (6.3-8.2) g/dL Albumin 4.7 (3.5-5.1) g/dL Lipase 42 (23-300) U/L Urine Color Yellow (Yellow) Urine Appearance Clear (Clear) Urine pH 5.0 (5.0-9.0) Ur Specific [place] 1.026 (1.001-1.035) Urine Protein Negative (Negative) mg/dL Urine Glucose (UA) Negative (Negative) mg/dL Urine Ketones Negative (Negative) mg/dL Ur Blood (Man) Negative (Negative) Urine Nitrate Negative (Negative) Urine Bilirubin Negative (Negative) Urine Urobilinogen 1.0 (<2.0) mg/dL Leukocyte Esterase Rfl Negative (Negative) JEN/UL POC Urine HCG, Qual Negative (Negative) Imaging Data Radiologist's impression: Impressions Abdomen/Pelvis CT 05/06/24 08:04 IMPRESSION: 1. Umbilical hernia containing fat. 2. Diffuse hepatic steatosis. Pelvis Ultrasound 05/06/24 10:04 IMPRESSION: 1. Status post hysterectomy and 1.8 cm anechoic right ovarian cyst/follicle. Discharge Plan Discharge Clinical Impression: Right sided abdominal pain Patient Disposition: Home, Self-Care Condition: Stable Instructions: Ovarian Cyst (ED), Abdominal Pain (ED) Additional Instructions: Tylenol and ibuprofen for pain control. Have close follow-up with OB Gyne. If you have onset of fever or worsening symptoms then please call or return to the emergency department. Prescriptions: No Action ibuprofen 200 mg tablet 200 mg PO Q6H PRN (Reason: fever) Qty: 30 0RF Follow-up/Referrals: Micky Cruz MD [Primary Care Provider] -
[2024-05-06 11:00] VITALS: BP 122/82; PULSE 82; RESP 14; O2SAT 100
== END 2024-05-06 11:02 | disposition home or self-care (01) ==
PROVIDERS: Student in an Organized Health Care Education/Training Program; Emergency Provider Emergency Medicine; PCP Family Medicine
DX: R10.31 Right lower quadrant pain (principal); E66.3 Overweight; Z68.31 Body mass index [BMI] 31.0-31.9, adult; K21.9 Gastro-esophageal reflux disease without esophagitis; Z90.710 Acquired absence of both cervix and uterus; Z90.49 Acquired absence of other specified parts of digestive tract; Z87.891 Personal history of nicotine dependence; K76.0 Fatty (change of) liver, not elsewhere classified; K42.9 Umbilical hernia without obstruction or gangrene; N83.01 Follicular cyst of right ovary
CPT/HCPCS: 36415; 74177; 76856; 80053; 81003; 81025; 83690; 85025; 99284; Q9967

== ENCOUNTER 2024-09-14 09:55 | Outpatient (CLI) | payer BC, SELFPAY ==
--- NOTE | ~2024-09-14 | MM_ITS ---
EXAMINATION: MM screening [facility] BI w lana HISTORY: Screening TECHNIQUE: Craniocaudal and mediolateral oblique 3-D tomosynthesis images were obtained and synthetic 2-D images were generated. CAD analysis was submitted and interpreted. COMPARISON: 08/20/2022 and dating back to 05/09/2016. BREAST PARENCHYMAL COMPOSITION: There are scattered areas of fibroglandular density. FINDINGS: Redemonstration of a (likely) intramammary lymph node within the lower inner anterior third of the left breast, stable dating back to 2015 Stable parenchymal pattern without suspicious microcalcifications, architectural distortion, addition al discrete masses or significant asymmetry. IMPRESSION: 1. No mammographic evidence of malignancy. 2. Recommend routine screening mammography in one year. BI-RADS Category 2: Benign finding(s). Reviewed, dictated and finalized at location A.
== END 2024-09-14 09:56 | disposition home or self-care (01) ==
LOC: MICIMG 09:57
PROVIDERS: PCP Family Medicine; Visit Provider Obstetrics & Gynecology
DX: Z12.31 Encounter for screening mammogram for malignant neoplasm of breast (principal)
CPT/HCPCS: 77063; 77067